=== PATIENT | male | born 1990 | race Caucasian/White ===

== ENCOUNTER 2021-12-16 13:34 | Emergency (ER) | payer BC ==
[2021-12-16] MEDS ORDERED: Acetaminophen/HYDROcodone 325-5 MG Tab PO ONE (13:35)
[2021-12-16] MEDS: Acetaminophen 500 MG Tab PO ONE (14:17)
[2021-12-16] MEDS: Ketorolac 30 MG/ML SDV IM ONE (14:19)
== END 2021-12-16 15:40 | disposition home or self-care (01) ==
LOC: FB.ED 13:34
DX: S62.396A Other fracture of fifth metacarpal bone, right hand, initial encounter for closed fracture (principal); W22.09XA Striking against other stationary object, initial encounter
CPT/HCPCS: 29125; 73130; 96372; 99283; A9270; J1885

== ENCOUNTER 2024-02-25 05:30 | Emergency (ER) | payer BC ==
[2024-02-25] MEDS: Ondansetron 4 MG Tab.DIS PO ONE (06:17)
[2024-02-25 06:30] LABS: INFLUENZA A NAA NEGATIVE (NEGATIVE); INFLUENZA B NAA NEGATIVE (NEGATIVE); RESPIRATORY SYNCYTIAL VIR NAA NEGATIVE (NEGATIVE)
[2024-02-25 06:32] LABS: CORONAVIRUS COVID-19 NAA NEGATIVE (NEGATIVE)
== END 2024-02-25 06:45 | disposition home or self-care (01) ==
LOC: FB.ED 05:30
DX: B34.9 Viral infection, unspecified (principal); Z79.899 Other long term (current) drug therapy
CPT/HCPCS: 0241U; 99283; 99284; Q0162